=== PATIENT | male | born 1945 | race Caucasian/White ===

== ENCOUNTER → 2017-09-27 | Outpatient (CLI) | payer MEDICARE, BC ==
[~2017-09-27] MED LIST: OMNIPAQUE 350 MG/ML, 150 ML BOTTLE ONE
== END | disposition home or self-care (01) ==
LOC: CFH 11:12
PROVIDERS: ATTEND Internal Medicine Cardiovascular Disease
DX: I48.91 Unspecified atrial fibrillation (principal); I25.10 Atherosclerotic heart disease of native coronary artery without angina pectoris; I77.810 Thoracic aortic ectasia
CPT/HCPCS: 71046; 75572; 82565; Q9967

== ENCOUNTER 2017-10-01 06:32 | Inpatient (IN) | payer MEDICARE, BC ==
[~2017-10-01] VITALS: Ht 195.6 cm; Wt 132.0 kg
[2017-10-01] MEDS ORDERED: SODIUM CHLORIDE 0.9% 1,000 ML IV SCH ×2 (06:49→07:00)
[2017-10-01 06:53] VITALS: BP 132/93
[2017-10-01] MEDS ORDERED: MULT-6 PO (07:11)
[2017-10-01] MEDS ORDERED: METO-93 PO (07:11)
[2017-10-01] MEDS ORDERED: METO25TA91 PO (07:11)
[2017-10-01] MEDS ORDERED: RIVA20TA PO (07:11)
[2017-10-01] MEDS ORDERED: LYSI500T3 PO (07:11)
[2017-10-01] MEDS ORDERED: LISI-170 PO (07:11)
[2017-10-01] MEDS ORDERED: MAGN400T36 PO (07:11)
[2017-10-01] MEDS ORDERED: SIMV40TA3 PO (07:11)
[2017-10-01] MEDS ORDERED: EZET10TA18 PO (07:11)
[2017-10-01] MEDS ORDERED: OMEG1CAP6 PO (07:11)
[2017-10-01] MEDS ORDERED: MIDAZOLAM 1 MG/ML, 2ML ONE (07:47)
[2017-10-01] MEDS ORDERED: FENTANYL PF 250 MCG/5ML ONE (07:48)
[2017-10-01] MEDS ORDERED: ROCURONIUM 10 MG/ML,10ML ONE (08:02)
[2017-10-01] MEDS ORDERED: SUCCINYLCHOLINE 20 MG/ML, 10ML ONE (08:02)
[2017-10-01] MEDS ORDERED: PROPOFOL 10 MG/ML, 20ML ONE (08:02)
[2017-10-01] MEDS ORDERED: PHENYLEPHRINE 10 MG/ML ONE (08:02)
[2017-10-01] MEDS ORDERED: DEXAMETHASONE 4 MG/ML, 1ML ONE (08:02)
[2017-10-01] MEDS ORDERED: HEPARIN 1,000 UNITS/ML, 10ML ONE (08:12)
[2017-10-01] MEDS ORDERED: PROTAMINE SULFATE 10 MG/ML, 5ML ONE (08:12)
[2017-10-01] MEDS ORDERED: VASOPRESSIN 20 UNIT/ML, 1ML ONE (08:47)
[2017-10-01] MEDS ORDERED: ACETAMINOPHEN 325 MG TABLET PO PRN ×2 (11:00→11:30)
[2017-10-01] MEDS ORDERED: TEMPLATE NON-FORMULARY MED. (Lysine 500 MG) PO PRN (11:00)
[2017-10-01] MEDS ORDERED: ZOLPIDEM 5MG TABLET PO PRN (11:00)
[2017-10-01] MEDS ORDERED: MEPERIDINE/PF 25MG/0.5ML IVPush PRN (11:30)
[2017-10-01] MEDS ORDERED: LORazepam 2 MG/ML, 1ML IVPush PRN (11:30)
[2017-10-01] MEDS ORDERED: OXYcodone 5 MG/5 ML ORAL.SOL UDC PO PRN (11:30)
[2017-10-01] MEDS ORDERED: LABETALOL 5MG/ML, 20ML IV PRN (11:30)
[2017-10-01] MEDS ORDERED: hydrALAzine 20 MG/ML, 1ML IV PRN (11:30)
[2017-10-01] MEDS ORDERED: ONDANSETRON ODT 8 MG PO PRN (11:30)
[2017-10-01] MEDS ORDERED: FENTANYL PF 100 MCG/2ML IV PRN (11:30)
[2017-10-01] MEDS ORDERED: PROMETHAZINE 25 MG SUPP PR PRN (11:30)
[2017-10-01] MEDS ORDERED: HYDROmorphone 1 MG/ML, 1ML IV PRN (11:30)
[2017-10-01] MEDS ORDERED: ALBUTEROL SULFATE 2.5 MG/3 ML NPPB PRN (11:30)
[2017-10-01] MEDS ORDERED: MIDAZOLAM 1 MG/ML, 2ML IV PRN (11:30)
[2017-10-01] MEDS ORDERED: ONDANSETRON 2MG/ML, 2ML IV PRN (11:30)
[2017-10-01 12:40] VITALS: BP 92/62
[2017-10-01] MEDS ORDERED: RIVAROXABAN 20 MG TABLET PO SCH (14:00)
[2017-10-01] MEDS ORDERED: RIVAROXABAN 20 MG TABLET PO ONE (14:00)
[2017-10-01] MEDS: SOTALOL 80MG TABLET PO SCH (18:23)
[2017-10-01 19:10] VITALS: BP 126/80
[2017-10-01] MEDS: EZETIMIBE 10 MG TABLET PO SCH (21:15)
[2017-10-01] MEDS: SIMVASTATIN 40 MG TABLET PO SCH (21:15)
[2017-10-01] MEDS: LISINOPRIL 20 MG TABLET PO SCH (21:15)
[2017-10-02 03:26] VITALS: BP 116/71
[2017-10-02] MEDS: SOTALOL 80MG TABLET PO SCH (05:45)
[2017-10-02 07:38] VITALS: BP 107/67
[2017-10-02] MEDS: MAGNESIUM OXIDE 400 MG TABLET PO SCH (08:01)
[2017-10-02] MEDS: RIVAROXABAN 20 MG TABLET PO SCH (08:01)
[2017-10-02] MEDS: MULTIVITAMIN 1 TABLET PO SCH (08:01)
[2017-10-02] MEDS: LISINOPRIL 20 MG TABLET PO SCH ×2 (08:02→21:09)
[2017-10-02 13:05] VITALS: BP 112/71
[2017-10-02] MEDS: SOTALOL 120MG TABLET PO SCH (18:00)
[2017-10-02 19:38] VITALS: BP 121/75
[2017-10-02] MEDS: EZETIMIBE 10 MG TABLET PO SCH (21:09)
[2017-10-02] MEDS: SIMVASTATIN 40 MG TABLET PO SCH (21:10)
[2017-10-03 02:00] VITALS: BP 103/66
[2017-10-03] MEDS: SOTALOL 120MG TABLET PO SCH (05:45)
[2017-10-03 07:54] VITALS: BP 107/67
[2017-10-03] MEDS ORDERED: SOTA120T14 PO (09:48)
[2017-10-03] MEDS: MAGNESIUM OXIDE 400 MG TABLET PO SCH (10:03)
[2017-10-03] MEDS: LISINOPRIL 20 MG TABLET PO SCH (10:03)
[2017-10-03] MEDS: RIVAROXABAN 20 MG TABLET PO SCH (10:03)
[2017-10-03] MEDS: MULTIVITAMIN 1 TABLET PO SCH (10:03)
== END 2017-10-03 12:43 | disposition home or self-care (01) | DRG 274 ==
LOC: CACL 06:32 → 5SO 12:35 → CACL 18:28 → 5SO 19:38
PROVIDERS: ADMIT Internal Medicine Cardiovascular Disease; ATTEND Internal Medicine Cardiovascular Disease
PROC: 02583ZZ Destruction of Conduction Mechanism, Percutaneous Approach (ICD-10-PCS; 2017-10-01)
PROC: 02K83ZZ Map Conduction Mechanism, Percutaneous Approach (ICD-10-PCS; 2017-10-01)
PROC: B245ZZZ Ultrasonography of Left Heart (ICD-10-PCS; 2017-10-01)
PROC: 4A0234Z Measurement of Cardiac Electrical Activity, Percutaneous Approach (ICD-10-PCS; principal; 2017-10-01 08:00)
DX: I48.91 Unspecified atrial fibrillation (principal); D68.69 Other thrombophilia; E78.5 Hyperlipidemia, unspecified; I48.92 Unspecified atrial flutter; I10 Essential (primary) hypertension; I25.10 Atherosclerotic heart disease of native coronary artery without angina pectoris; Z87.891 Personal history of nicotine dependence; Z95.0 Presence of cardiac pacemaker; Z95.5 Presence of coronary angioplasty implant and graft
CPT/HCPCS: 93005; 93306; 93312; 93321; 93325; 93613; 93656; 93662; C1732; C1766; C1893; C1894; J1100; J1644; J2250; J2704; J2720; J3010; C1730; C1759; J0330; J2370

== ENCOUNTER 2018-01-26 09:40 | Day surgery (SDC) | payer MEDICARE, BC ==
[~2018-01-26] VITALS: Ht 195.6 cm; Wt 113.6 kg
[~2018-01-26 09:40] MED LIST changes: +EZET10TA18 PO; +LISI-170 PO; +LYSI500T3 PO; +MAGN400T36 PO; +METO-93 PO; +METO25TA91 PO; +MULT-6 PO; +OMEG1CAP6 PO; -OMNIPAQUE 350 MG/ML, 150 ML BOTTLE ONE; +RIVA20TA PO; +SIMV40TA3 PO; +SOTA120T14 PO
[2018-01-26 10:13] VITALS: BP 125/85
[2018-01-26] MEDS ORDERED: LISI5TAB7 PO (10:27)
[2018-01-26] MEDS ORDERED: FINA5TAB4 PO (10:27)
[2018-01-26] MEDS ORDERED: LISI-170 PO (10:27)
[2018-01-26] MEDS ORDERED: CHOL100011 PO (10:27)
[2018-01-26] MEDS ORDERED: TAMS-11 PO (10:27)
[2018-01-26 10:39] LABS: ANION GAP 8 mmol/L (5-15); CHLORIDE 105 mmol/L (98-107); CREATININE 0.91 mg/dL (0.7-1.3)
[2018-01-26] MEDS ORDERED: PROPOFOL 10 MG/ML, 20ML ONE (12:25)
== END 2018-01-26 14:19 | disposition home or self-care (01) ==
LOC: CACL 09:40
PROVIDERS: ATTEND Internal Medicine Cardiovascular Disease
DX: I48.91 Unspecified atrial fibrillation (principal); I48.92 Unspecified atrial flutter; I10 Essential (primary) hypertension; I25.10 Atherosclerotic heart disease of native coronary artery without angina pectoris; Z98.890 Other specified postprocedural states; Z88.5 Allergy status to narcotic agent; Z95.0 Presence of cardiac pacemaker
CPT/HCPCS: 36415; 80048; 92960; J2704